=== PATIENT | male | born 1960 | race Caucasian/White ===

== ENCOUNTER 2017-08-04 07:52 | Outpatient (CLI) | payer MEDICAID ==
[2017-08-04] MEDS ORDERED: MIDAZOLAM 2 MG/2 ML VIAL IVP PRN (07:56)
[2017-08-04] MEDS ORDERED: FLUMAZENIL 0.5 MG/5 ML MDV IVP PRN (07:56)
[2017-08-04] MEDS ORDERED: ONDANSETRON 4 MG/2 ML VIAL IVP ONE (07:56)
[2017-08-04] MEDS ORDERED: NALOXONE HCL 0.4 MG/ML INJ IVP PRN (07:56)
[2017-08-04] MEDS ORDERED: fentaNYL 100 MCG/2 ML INJ IVP PRN (07:56)
[2017-08-04] MEDS ORDERED: MEPERIDINE 25 MG/ML SYR IVP PRN (07:56)
[2017-08-04] MEDS ORDERED: NS 1,000 ML IV SCH (08:00)
--- NOTE | 2017-08-04 09:15 | PDPROPOC ---
Sedation Plan of Care Sedation Plan of Care: vital signs stable, mental status noted, patient educated of risks, benefits, alternatives, patient can tolerate sedation ASA Classification: ASA 2 Planned drugs: fentanyl, midazolam Mallampati Score: Class 2 Mallampati Reference Image: Patient passed 3-3-2 rule?: Yes
--- NOTE | 2017-08-04 09:15 | PDRADPRE ---
Radiology History & Physical Surgical history: none Home medications: Carbidopa 07/29/17 [Last Taken Unknown] Entacapone 07/29/17 [Last Taken Unknown] Allergies/Adverse Reactions: No Known Allergies Allergy (Unverified 07/29/17 11:21) Mental status: A&Ox3 Heart exam: regular rate and rhythm Lungs exam: clear to auscultation Mallampati Score: Class 2
--- NOTE | 2017-08-04 09:16 | PDRADPN ---
Radiology Procedure Note Date of Procedure: 08/04/17 Radiologist: Krunal Domingo Anesthesia: IV Sedation Pre-op Diagnosis: parkinsons Post-op Diagnosis: parkinsons Indication: moderate sedation requested Procedure: MRI brain Inf/Abcess present in the surg proc area at time of surgery?: No Complications: none
[2017-08-04] MEDS ORDERED: GADOBUTROL 10 ML VIAL IVP ONE (09:19)
[2017-08-04] MEDS ORDERED: ONDANSETRON 4 MG/2 ML VIAL IVP PRN (11:17)
[2017-08-04] MEDS ORDERED: ACETAMINOPHEN 325 MG TAB PO PRN (11:17)
[2017-08-04 17:25] VITALS: BP 120/70
== END 2017-08-04 17:28 | disposition home or self-care (01) ==
LOC: FIMAGING 07:52
PROVIDERS: ATTEND Physician Assistant Surgical
DX: G20 Parkinson's disease (principal)
CPT/HCPCS: A9585; J2250; J2310; J3010

== ENCOUNTER 2017-08-11 05:40 | Inpatient (IN) | payer MEDICAID ==
[2017-08-11] MEDS ORDERED: LR 1,000 ML IV ONE (05:54)
[2017-08-11] MEDS ORDERED: CEFUROXIME 1,500 MG in STERILE WATER INJ 17 ML IV ONE (06:00)
[2017-08-11 06:22] LABS: PLATELET COUNT 196 10^3/uL (150-400)
[2017-08-11 06:31] LABS: INR 0.95 (0.83-1.16); PROTIME(PATIENT) 12.9 SEC (12.0-15.0)
[2017-08-11] MEDS ORDERED: LIDOCAINE 2% JELLY 20 ML (UROJECT) ONE (06:35)
[2017-08-11] MEDS ORDERED: CHLORHEXIDINE GLUC HIBICLENS 118 ML BTL TP ONE (06:35)
[2017-08-11] MEDS ORDERED: BUPIVACAINE 0.25% 30 ML SDV ONE (06:35)
[2017-08-11] MEDS ORDERED: GENTAMICIN SULFATE 80 MG/2 ML VIAL ONE (06:36)
[2017-08-11] MEDS ORDERED: EPINEPHrine 1 MG/ML INJ ONE (06:36)
[2017-08-11] MEDS ORDERED: THROMBIN (BOVINE) 20,000 UNIT VIAL TP ONE (06:36)
[2017-08-11] MEDS ORDERED: POVIDONE-IODINE 30 GM OINTTUBE TP ONE (06:37)
--- NOTE | 2017-08-11 06:53 | PDANEPAE ---
ANE History of Present Illness parkinsons dz p/f DBS ANE Past Medical History - Cardiovascular History Hx Hypertension: No Hx Arrhythmias: No Hx Chest Pain: No Hx Coronary Artery / Peripheral Vascular Disease: No Hx CHF / Valvular Disease: No Hx Palpitations: No - Pulmonary History Hx COPD: No Hx Asthma/Reactive Airway Disease: No Hx Recent Upper Respiratory Infection: No Hx Oxygen in Use at Home: No Hx Sleep Apnea: No Sleep Apnea Screening Result - Last Documented: Negative Pulmonary History Comment: CURRENT RESP INFECTION-COUGHING -NON PRODUCTIVE . - Neurologic History Hx Cerebrovascular Accident: No Hx Seizures: No Hx Dementia: No Neurologic History Comment: PARKINSON'S DX ~2016-TREMOR PREDOMINANTLY L GREATER THAN R. CONCUSSION AGE 6-NO MEMORY DEFICITS,NO H/A'S - Endocrine History Hx Diabetes: No Obesity: yes - Renal History Hx Renal Disorders: No - Liver History Hx Hepatic Disorders: No - Neurological & Psychiatric Hx Hx Neurological and Psychiatric Disorders: No - Cancer History Hx Cancer: No - Congenital Disorder History Hx Congenital Disorders: No - GI History Hx Gastrointestinal Disorders: No - Other Health History Other Health History: Parkinsons - Chronic Pain History Chronic Pain: No - Surgical History Prior Surgeries: None ANE Review of Systems Review of Systems: - Exercise capacity METS (RN): 4 METS ANE Patient History - Allergies Allergies/Adverse Reactions: No Known Allergies Allergy (Unverified 07/29/17 11:21) - Home Medications Home medications: home medication list seen and reviewed Home Medications: Carbidopa 07/29/17 [Last Taken 08/10/17] Entacapone 07/29/17 [Last Taken 08/10/17] - NPO status NPO Since - Liquids (Date): 08/10/17 NPO Since - Liquids (Time): 17:00 NPO Since - Solids (Date): 08/10/17 NPO Since - Solids (Time): 17:00 - Anes Hx Anes Hx: no prior problems - Smoking Hx Smoking Status: Never smoked - Family Anes Hx Family Hx Anesthesia Complications: None known ANE Labs/Vital Signs - Labs Result Diagrams: 08/11/17 06:10 08/11/17 06:10 - Vital Signs Blood Pressure: 144/100 Heart Rate: 79 Respiratory Rate: 18 O2 Sat (%): 94 Height: 175.26 cm Weight: 108.862 kg ANE Physical Exam - Airway Neck exam: FROM Mallampati Score: Class 2 Mouth exam: normal dental/mouth exam - Pulmonary Pulmonary: no respiratory distress - Cardiovascular Cardiovascular: regular rate and rhythym - ASA Status ASA Status: II ANE Anesthesia Plan Anesthesia Plan: MAC Lines/Monitors: arterial line
[2017-08-11] MEDS ORDERED: DEXMEDETOMIDINE HCL 400 MCG in NS 100 ML IV ONE (07:00)
--- NOTE | 2017-08-11 07:05 | PDHPUP ---
History & Physical Update H&P update statement: This history and physical update is based on an assessment of the patient which was completed after admission or registration (within 24 hours), but prior to the surgery/procedure. H&P update: H&P reviewed & patient examined, no change in patient's condition since H&P completed
[2017-08-11] MEDS ORDERED: niCARdipine/NACL/200 ML BAG IV ONE (07:06)
[2017-08-11] MEDS ORDERED: PROPOFOL 200 MG/20 ML VIAL ONE ×2 (07:07→09:03)
[2017-08-11] MEDS ORDERED: LIDOCAINE 2% 5 ML SDV ONE (07:07)
[2017-08-11] MEDS ORDERED: hydrALAZINE 20 MG/ML VIAL ONE (10:25)
[2017-08-11] MEDS ORDERED: LABETALOL HCL 5 MG/ML 20 ML MDV IVP PRN (11:19)
[2017-08-11] MEDS ORDERED: oxyCODONE IR 5 MG TAB PO PRN (11:19)
[2017-08-11] MEDS ORDERED: ALBUTEROL 3 ML DEYVIAL IH PRN (11:19)
[2017-08-11] MEDS ORDERED: LR 500 ML IV PRN (11:19)
[2017-08-11] MEDS ORDERED: NALOXONE HCL 0.4 MG/ML INJ IVP PRN (11:19)
[2017-08-11] MEDS ORDERED: fentaNYL 100 MCG/2 ML INJ IVP PRN (11:19)
[2017-08-11] MEDS ORDERED: HYDROmorphONE/DILAUDID 2 MG/ML INJ IVP PRN (11:19)
[2017-08-11] MEDS ORDERED: HYDROCODONE/APAP 5/325 TAB PO PRN (11:19)
[2017-08-11] MEDS ORDERED: ACETAMINOPHEN 500 MG TAB PO PRN (11:19)
[2017-08-11] MEDS ORDERED: ONDANSETRON 4 MG/2 ML VIAL IVP PRN ×2 (11:19→11:50)
--- NOTE | 2017-08-11 11:23 | POSTANESTH ---
Post Anesthetic Evaluation Cardiovascular Status: Normal, Stable Respiratory Status: Normal, Stable Level of Consciousness/Mental Status: Can Participate in Eval Pain Control: Adequate, Prn Tx Ordered Nausea/Vomiting Control: Adequate, Prn Tx Ordered Complications Possibly Related to Anesthesia: None Noted
[2017-08-11] MEDS ORDERED: fentaNYL 100 MCG/2 ML INJ ONE (11:32)
[2017-08-11] MEDS ORDERED: LACTULOSE 20 GM/30 ML UDCUP PO PRN (11:50)
[2017-08-11] MEDS ORDERED: BISACODYL 10 MG SUPP PR PRN (11:50)
[2017-08-11] MEDS ORDERED: MAGNESIUM HYDROXIDE 30 ML UDCUP PO PRN (11:50)
[2017-08-11] MEDS ORDERED: POLYETHYLENE GLYCOL 3350 17 GM PKT PO PRN (11:50)
[2017-08-11] MEDS ORDERED: hydrALAZINE 20 MG/ML VIAL IVP PRN (11:52)
--- NOTE | 2017-08-11 11:56 | POSTOPPROG ---
Post Op Note Date of Operation: 08/11/17 Surgeon: Lucia Sexton Front End Web Designer: Edel Miller PA-C Anesthesia: IV Sedation, Local (Specify) Pre-op Diagnosis: Parkinson's Post-op Diagnosis: Parkinson's Procedure: Right STN DBS lead placement Inf/Abcess present in the surg proc area at time of surgery?: No Depth: Deep Incisional (Fascial) EBL: Minimal Plan Plan: 57 yo male s/p right STN DBS lead placement for PD - neuro checks - pain control - advance diet as tolerated - postop head CT pending - maintain SBP < 140 - to floor if head CT stable and SBP < 140 - discharge: hopefully home tomorrow Exam Awake. Alert Following commands Strength full Incision with dressing c/d/i
[2017-08-11] MEDS ORDERED: NS W/ 20 KCl/L 1,000 ML IV SCH (12:00)
[2017-08-11] MEDS ORDERED: LABETALOL HCL 5 MG/ML 20 ML MDV ONE (12:14)
--- NOTE | 2017-08-11 12:30 | GPN ---
[f rep st] PROCEDURE NOTE DATE OF PROCEDURE: 08/11/2017 PREPROCEDURE DIAGNOSIS: Parkinson disease. POSTPROCEDURE DIAGNOSIS: Parkinson disease. PROCEDURE PERFORMED: Intraoperative functional subcortical mapping by microelectrode recording and s timulation. COMPLICATIONS: None. INDICATIONS FOR PROCEDURE: Determination of optimal electrode lead placement for deep brain stimulat ion therapy for Parkinson disease to the STN. DESCRIPTION OF PROCEDURE: Following the incision, the right upper hole was drilled. The arc was the n arranged with the following coordinates: X is 87, Y 98.5, Z 112, ring 62, arc 76.3. The recording microelectrode was then slowly advanced into the brain using a central tract. There was evidence of entering STN at 5.6 above target. There was change in stimulation with shoulder passive range of mo tion at 4.6 above target, as well as tremor cell present. We exited STN at 1 below target. We then elected to proceed with macro stimulation at 2 above target. Patient had no side effects up to 4.0 with improvement in tremor. We, therefore, proceeded with placement of the lead and test stim ulation. At 0-, patient had no side effects up to 3.5 with transient tingling at 4.0. At 1-, patien t had no side effects up to 5.0. At 2-, patient had no side effects up to 5.0. At 3-, patient had n o side effects up to 5.0. The bottom of the lead was placed at 1 below target. Despite seeing improvement in his tremor with macro stimulation, there was not significant tremor imp rovement with test stimulation at the 0, 1, 2, and 3 contacts. We, therefore, elected to proceed wit h further microelectrode recordings using a posterior and lateral tract. There was no evidence of en tering STN on the lateral tract. In the posterior tract, we entered STN at 4 above target with hicks e in stimulation with passive range of motion of the elbow at 1.6 above target. We exited STN at 1 b elow target. We then proceeded with macro stimulation with the posterior tract at 1.5 above target. Patient had no side effects up to 4.0. With these recordings obtained, we decided to place the lead and stimulate. At 0-, patient had trans ient tingling. At 1.5 with constant tingling at 2.5 amplitude. At 1-, patient had improved tremor a t 3.0 with tingling in his toes. At 2-, patient had no side effects up to 4.0. At 3-, patient had a buzzing sensation in his tongue and shoulder that was constant at 4.0 above target. We elected to p lace the lead in the posterior tract due to the microelectrode recordings obtained and test stimulati on. The lead was placed at 1 below target. The patient tolerated the surgery well without complications and was transferred to the recovery unit . /[id number]/MODL
--- NOTE | 2017-08-11 12:30 | GOP ---
[f rep st] OPERATIVE REPORT DATE OF OPERATION: SURGEON: Lucia Sexton DO NEUROSURGEON: Lucia Sexton DO SEARCH MARKETING ANALYST: ADELE Junior PREOPERATIVE DIAGNOSIS: Parkinson disease. POSTOPERATIVE DIAGNOSIS: Parkinson disease. PROCEDURE PERFORMED: 1. Right deep brain stimulator lead placement to subthalamic nucleus. 2. Stealth. FINDINGS: SPECIMENS: None. ESTIMATED BLOOD LOSS: 30 mL. INDICATIONS: This is a 57-year-old male with tremor-predominant Parkinson's who was found to be a go od candidate for bilateral deep brain stimulator lead placement to the STN nucleus. DESCRIPTION OF PROCEDURE: He was identified, consented. Sites were marked. Brought to the operatin g room and anesthetized under local with MAC. Hair was clipped with the OR clippers. Head was clean sed with ChloraPrep. Povidone-iodine was placed in the pins. Pin sites were anesthetized with 0.25% Marcaine with epinephrine. Leksell frame was then placed stereotactically, and a spin with a locali zer box was performed with the O-arm 2. This was merged to the preoperative plan in the [employer] software. The STN coordinates were an X of 11.95, a Y of -2.79, a Z of -4.93. The entry point was an X of 36.41, a Y of 48.44, a Z of 67.19. This corresponded to 18.7 degrees off midsagittal, 5 4.6 degrees off midaxial. This corresponded to Leksell frame coordinates of an X of 87, a Y of 98.5, a Z of 112, a ring of 62 degrees and arc of 76.3 degrees, and an ACPC distance of 25. These setting s were all set and triple checked after prepping and draped in the usual sterile fashion. The incisi on site was marked using the cannula in the preoperative plan [facility] coordinates. A half-moss incis ion was anesthetized with 0.5% Marcaine with epinephrine. Incision was made with a 10 blade. Hemost asis was obtained with bipolar cautery and Winsome clips. Elevated periosteum with a periosteal elevat or, marked the bone opening with the same cannula and then performed a pilot safety inspector hole. Then, a 14 mm dri ll bur hole was placed. The bone edges were waxed. The Stimloc device was placed, locked into place with 5 mm Synthes screws. The clipping mechanism verified to clip and lock. We opened the dura sha rply from above with an 11 blade, and hemostasis was obtained with bipolar cautery. We then placed a cannula and stylet, and placed DuraSeal. We then removed the internal stylet, placed a microelectro de, performed microelectrode recordings. At this point in time, assistance was needed and Edel Miller's assistance was needed as one person was required to remain scrubbed while the JUAN MIGUEL was being p erformed to monitor the lead monitor and run the drive. We got an excellent run with good driving an d tremor itself in the center tract approximately 6 mm of STN. We elected to place the lead here. W e got out 1 below. We performed macro stim and got good tremor control. We placed the lead. We did not get good tremor control at any level. We got no side effects whatsoever. We would get a quick arrest for approximately 3 seconds and then get tremor return. We elected to drive back up and try a posterior and lateral tract, and so we removed the Gelfoam and DuraSeal, placed 2 more cannulae, macy torie the center tract with the insertion cannula inside of it. Placed microelectrodes through the [facility] ers and performed microelectrode recording. We got another 5 mm run of the STN with good driving in the posterior tract. We elected to macro stim here and got good arrest, and so we elected to test th e lead here and see which of the 2 was better. We placed the lead at 1 below target where we got out and tested the lead here. We were able to get tremor rest on the 1 contact at 3 V and we did get so me transient paresthesias. This seemed to be the better tract from a tremor control standpoint. We had previously performed a Stealth spin to make our decision as to where to place our moves. We then performed another Stealth spin and in fact the lead fell exactly where we expected it to be. We ret racted the cannula, removed the stylet, locked the lead into place, marked the lead and placed it int o the groove, placed the cap, and placed the boot over the lead extension complex, placed the extensi on and locked into place, protecting each contact with the torque wrench. Brought the boot over the lead extension complex, tied it into position with 2-0 silk ties at 2 positions, tunneled posteriorly with periosteal elevator. Anesthetized the stab incision with 0.25% Marcaine with epinephrine. A s tab incision was made with an 11 blade, and we tunneled posterior to anterior, bringing the lead exte nsion down and out cutting it at the skin, coiling the lead posterior and around the incision. Took a final x-ray. It had not migrated. Copiously irrigated the incision with over a liter of gentamici n infused saline. Closed the galea with 2-0 Vicryl pop-offs. The skin was closed with 3-0 running n ylon. Wound was dressed with Xeroform and Telfa. The frame was removed. The patient tolerated the procedure well. There were no complications. FLUIDS: 1200 mL of crystalloid. URINE OUTPUT: 350 mL. DRAINS: None. COMPLICATIONS: None. /[id number]/MODL
[2017-08-11] MEDS: CEFUROXIME 1,500 MG in NS 50 ML IV SCH (16:43)
[2017-08-11] MEDS: ENTACAPONE 200 MG TAB PO SCH ×2 (17:10→22:36)
[2017-08-11] MEDS: CARBIDOPA/LEVODOPA 25 MG/100 MG TAB PO SCH ×2 (17:10→22:36)
[2017-08-11] MEDS: ACETAMINOPHEN 325 MG TAB PO PRN ×2 (17:52→22:36)
[2017-08-11] MEDS: HYDROCODONE/APAP 5/325 TAB PO PRN (17:52)
[2017-08-11] MEDS: SENNOSIDES/DOCUSATE SODIUM TAB PO SCH (22:36)
[2017-08-12] MEDS: CEFUROXIME 1,500 MG in NS 50 ML IV SCH (01:39)
[2017-08-12] MEDS: ENTACAPONE 200 MG TAB PO SCH ×5 (01:41→20:48)
[2017-08-12] MEDS: CARBIDOPA/LEVODOPA 25 MG/100 MG TAB PO SCH ×5 (01:41→20:47)
[2017-08-12] MEDS: HYDROCODONE/APAP 5/325 TAB PO PRN ×2 (05:16→13:22)
[2017-08-12] MEDS: SENNOSIDES/DOCUSATE SODIUM TAB PO SCH ×2 (08:35→20:47)
[2017-08-12] MEDS: ACETAMINOPHEN 325 MG TAB PO PRN (08:38)
--- NOTE | 2017-08-12 10:10 | SOAPPROG ---
SOAP Progress Note Assessment/Plan: Assessment: 57 yo M POD #1 DVS lead placement Plan: stable PT/OT head CT 08/11 is stable likely dc home today please call with neuro changes 08/12/17 10:08 Subjective: mild headache, some nausea as well. No weakness Objective: Vital Signs Temp Pulse Resp BP Pulse Ox 37.3 C 83 16 103/73 94 08/12/17 07:45 08/12/17 07:45 08/12/17 07:45 08/12/17 07:45 08/12/17 07:45 Laboratory Results 08/11/17 06:10 08/11/17 06:10 08/11/17 08/12/17 08/13/17 05:59 05:59 05:59 Intake Total 800 Output Total 420 Balance 380 PT 12.9 SEC (12.0-15.0) 08/11/17 06:10 INR 0.95 (0.83-1.16) 08/11/17 06:10 AAOX4, +FC PERRL, EOMI, no facial droop CARI x 4 + light touch C/D/I ICD10 Worksheet Patient Problems: Problems Problem Status Onset Parkinson disease Acute - ICD10 Problem Qualifiers (1) Parkinson disease
[2017-08-12] MEDS ORDERED: NS 1,000 ML IV SCH (11:00)
[2017-08-12] MEDS ORDERED: CARBIDOPA/LEVODOPA 25 MG/100 MG TAB PO ONE (11:45)
--- NOTE | 2017-08-12 12:14 | PDMN ---
Medical Necessity Medical necessity: IP only surgery; cpt 88406 & [id number] Neurosurgery (Deep Brain Stimulator Placement)
--- NOTE | 2017-08-12 15:33 | ASMTCMCOM ---
CM Note CM Note Notes: Pt admitted for DBS placement for his Parkinsons. PT/OT have cleared him for home, his mother is coming to help, CM available for any changes. DC Plan: Independent Date Signed: 08/12/2017 03:33 PM Electronically Signed By:Irlanda Kuhn RN
[2017-08-13] MEDS: CARBIDOPA/LEVODOPA 25 MG/100 MG TAB PO SCH ×3 (01:53→11:14)
[2017-08-13] MEDS: ENTACAPONE 200 MG TAB PO SCH ×3 (01:53→11:14)
--- NOTE | 2017-08-13 08:33 | NEUSURGPN ---
Date of Surgery: 08/11/17 Post Op Day: 2 Assessment/Plan: Assessment: 57 yo M POD #1 DVS lead placement Plan: -Patient feeling better this am -Ok to discharge home today with C -PT/OT -head CT 08/11 is stable -Patient discussed with Dr Frausto please call with neuro changes Subjective: Feeling better this am, concerned about going home alone Objective: AxO x3 07/18 BUE, BLE Incision CDI with sutures Neuro Check Frequency: per routine Urinary Catheter in Place: No - Physician Discussed Patient with : Carlie Neurosurgery Physical Exam - Vitals, I&O, Labs I and O 08/12/17 08/13/17 08/14/17 05:59 05:59 05:59 Intake Total 800 Output Total 420 Balance 380 Weight 108.862 kg Intake: Oral (ml) 800 Output: Urine (ml) 420 Urinal 420 Other: Intake Quantity Yes Sufficient Number of Voids Toilet 5 1 Vital Signs Temp Pulse Resp BP Pulse Ox 36.7 C 67 16 131/97 H 97 08/13/17 08:00 08/13/17 08:00 08/13/17 08:00 08/13/17 08:00 08/13/17 08:00 Laboratory Results 08/11/17 06:10 08/11/17 06:10 ICD10 Worksheet Patient Problems: Problems Problem Status Onset Parkinson disease Acute
--- NOTE | 2017-08-13 08:35 | PDIAF ---
- Diagnosis Diagnosis: S/P DBS lead placement Code Status: Full Code - Medication Management Discharge Medications: Medications to Continue on Transfer Carbidopa/Levodopa [Carbidopa-Levodopa 25-100 Tab] 2 each PO 02,06,,16,21 [Last Taken 08/10/17] Entacapone [Comtan] 200 mg PO 02,06,11,16,21 07/29/17 [Last Taken 08/10/17] Hydrocodone/APAP 5/325 [King 5/325 (*)] 1 tab PO Q4HRS PRN tab 08/12/17 [Last Taken Unknown] Ondansetron HCl Pf [Zofran 4 mg Inj (*)] 4 mg IVP Q4HRS PRN vial 08/12/17 [ Last Taken Unknown] Acetaminophen [Tylenol 325mg (*)] 650 mg PO Q4HRS PRN tab 08/13/17 [Last Taken Unknown] Discharge Medications: Refer to the Discharge Home Medication list for PRN reason. - Orders Services needed: Home Care, Registered Nurse, Certified Multiplex Operator, Physical Therapy Home Care Face to Face: I certify that this patient was under my care and that I had the required [id number] encounter meeting the encounter requirements on the discharge day. My findings support the fact that the patient is homebound as defined in Home Care Face to Face Continued: CMS Chapter 7 Medicare Benefits Manual 30.1.1 , The condition of the patient is such that there exists a normal inability to leave home and consequently, leaving home would require a considerable and taxing effort. Diet Recommendation: no restrictions on diet Diet Texture: Regular Texture Diet Wound Care Instructions: Ok to shower Sutures/Anahi Site: Will remove at 2 week post op appointent Additional Instructions: 1. Follow up with Dr. Sexton in 2 weeks. [phone] 2. Refrain from lifting more than 10 pounds and bending. No strenuous activity. 3. Ok to remove dressing on 08/13/17 and leave incision open to the air. 4. Ok to shower and get incision wet starting 08/14/17. Be gentle, no scrubbing. 5. Take Tylenol as needed for pain relief. 6. Call Dr. Sexton's office with any questions/concerns. 7. discharge with deep brain stimulation post op instructions from [email or web address] -> patient resources -> post op instructions - Follow Up Care Current Providers and Referrals: NONE *PRIMARY CARE P,. [Primary Care Provider] - Lucia Sexton DO [Doctor of Osteopathy] - follow up in 2 weeks
[2017-08-13] MEDS: SENNOSIDES/DOCUSATE SODIUM TAB PO SCH (11:13)
[2017-08-13] MEDS: ACETAMINOPHEN 325 MG TAB PO PRN (11:14)
[2017-08-13 12:09] VITALS: BP 137/94
--- NOTE | 2017-08-13 16:14 | ASDISCHSUM ---
Discharge Information Plan Status:Home with Home Health Medically Cleared to Leave: Discharge Date:08/13/2017 01:37 PM CM D/C Disposition:Home Health Service ADT D/C Disposition:[id number] Projected Discharge Date:08/13/2017 11:00 AM Transportation at D/C: Discharge Delay Reason: Follow-Up Date:08/13/2017 11:00 AM Discharge Slot: Final Diagnosis: Placement Information Referral Type:*Home Health Care Services Referral ID:[id number] Provider Name:[facility] Address 1:[address] [address] Address 2: City:[place] Selection Factors: State:[place] Patient Contact Information Contact Name:JULIENRODRIGUEWING Relationship:Mother Address: City: [facility] [facility] Phone: State/Zip Code: Email: Financial Information Financial Class:Medicaid Primary Plan Desc:[employer] Primary Plan Number:[id number] Secondary Plan Desc: Secondary Plan Number: Assessment Information [facility] CM Progress Note CM Note CM Note Notes: Pt admitted for DBS placement for his Parkinsons. PT/OT have cleared him for home, his mother is coming to help, CM available for any changes. DC Plan: Independent Date Signed: 08/12/2017 03:33 PM Electronically Signed By:Irlanda Kuhn RN [facility] CM Progress Note CM Note CM Note Notes: Pt medically stable for d/c with Family C RN. Orders sent in [employer]. Pt address/phone verified. Date Signed: 08/13/2017 04:14 PM Electronically Signed By:ROHIT Barrera Intervention Information
--- NOTE | 2017-08-13 16:14 | ASMTCMCOM ---
CM Note CM Note Notes: Pt medically stable for d/c with [facility] RN. Orders sent in [employer]. Pt address/phone verified. Date Signed: 08/13/2017 04:14 PM Electronically Signed By:ROHIT Barrera
[2017-08-14] MEDS ORDERED: ENOXAPARIN 40 MG/0.4 ML SYR SC SCH (09:00)
== END 2017-08-13 13:37 | disposition home health service (06) | DRG 21 ==
LOC: F3N 05:40
PROVIDERS: ADMIT Neurological Surgery; ATTEND Neurological Surgery
PROC: 00K03ZZ Map Brain, Percutaneous Approach (ICD-10-PCS; 2017-08-11)
PROC: 00H03MZ Insertion of Neurostimulator Lead into Brain, Percutaneous Approach (ICD-10-PCS; principal; 2017-08-11 07:15)
DX: G20 Parkinson's disease (principal)
CPT/HCPCS: 97161-GP; 97166-GO; C1713; J0171; J0360; J0697; J1580; J2704; J3010

== ENCOUNTER 2017-09-01 05:40 | Inpatient (IN) | payer MEDICAID ==
[2017-09-01] MEDS ORDERED: CEFUROXIME 1,500 MG in NS 50 ML IV ONE (06:00)
[2017-09-01] MEDS ORDERED: LIDOCAINE 1% 2 ML INJ ID PRN (06:16)
[2017-09-01] MEDS ORDERED: LR 1,000 ML IV ONE (06:16)
[2017-09-01] MEDS ORDERED: CHLORHEXIDINE GLUC HIBICLENS 118 ML BTL TP ONE (06:39)
[2017-09-01] MEDS ORDERED: THROMBIN (BOVINE) 20,000 UNIT VIAL TP ONE (06:39)
[2017-09-01] MEDS ORDERED: BUPIVACAINE 0.25% 30 ML SDV ONE (06:40)
[2017-09-01] MEDS ORDERED: GENTAMICIN SULFATE 80 MG/2 ML VIAL ONE (06:40)
[2017-09-01] MEDS ORDERED: LIDOCAINE 2% JELLY 20 ML (UROJECT) ONE (06:40)
[2017-09-01] MEDS ORDERED: EPINEPHrine 1 MG/ML INJ ONE (06:40)
[2017-09-01] MEDS ORDERED: POVIDONE-IODINE 30 GM OINTTUBE TP ONE (06:40)
[2017-09-01] MEDS ORDERED: niCARdipine/NACL 200 ML IV SCH (07:00)
--- NOTE | 2017-09-01 09:14 | PDANEPAE ---
ANE Past Medical History - Cardiovascular History Hx Hypertension: No Hx Arrhythmias: No Hx Chest Pain: No Hx Coronary Artery / Peripheral Vascular Disease: No Hx CHF / Valvular Disease: No Hx Palpitations: No - Pulmonary History Hx COPD: No Hx Asthma/Reactive Airway Disease: No Hx Recent Upper Respiratory Infection: No Hx Oxygen in Use at Home: No Hx Sleep Apnea: No Sleep Apnea Screening Result - Last Documented: Negative Pulmonary History Comment: CURRENT RESP INFECTION-COUGHING -NON PRODUCTIVE . - Neurologic History Hx Cerebrovascular Accident: No Hx Seizures: No Hx Dementia: No Neurologic History Comment: PARKINSON'S DX ~2016-TREMOR PREDOMINANTLY L GREATER THAN R. CONCUSSION AGE 6-NO MEMORY DEFICITS,NO H/A'S - Endocrine History Hx Diabetes: No - Renal History Hx Renal Disorders: No - Liver History Hx Hepatic Disorders: No - Neurological & Psychiatric Hx Hx Neurological and Psychiatric Disorders: No - Cancer History Hx Cancer: No - Congenital Disorder History Hx Congenital Disorders: No - GI History Hx Gastrointestinal Disorders: No - Other Health History Other Health History: Parkinsons - Chronic Pain History Chronic Pain: No - Surgical History Prior Surgeries: None ANE Review of Systems Review of Systems: - Exercise capacity METS (RN): 4 METS ANE Patient History - Allergies Allergies/Adverse Reactions: No Known Allergies Allergy (Verified 09/01/17 06:25) - Home Medications Home Medications: Carbidopa/Levodopa [Carbidopa-Levodopa 25-100 Tab] 2 each PO 02,06,,16,21 [Last Taken 08/31/17 21:00] Entacapone [Comtan] 200 mg PO 02,06,,16,21 07/29/17 [Last Taken 08/31/17 21:00 ] - NPO status NPO Since - Liquids (Date): 09/01/17 NPO Since - Liquids (Time): 05:00 NPO Since - Solids (Date): 09/01/17 NPO Since - Solids (Time): 05:00 - Smoking Hx Smoking Status: Never smoked - Family Anes Hx Family Hx Anesthesia Complications: None known ANE Labs/Vital Signs - Vital Signs Blood Pressure: 138/94 Heart Rate: 76 Respiratory Rate: 21 O2 Sat (%): 93 Height: 175.26 cm Weight: 108.862 kg ANE Physical Exam - Airway Neck exam: C-collar in place, short neck Mallampati Score: Class 3 Mouth exam: normal dental/mouth exam - Pulmonary Pulmonary: no respiratory distress, no rales or rhonchi, reduced air movement - Cardiovascular Cardiovascular: regular rate and rhythym, no murmur, rub, or gallop - ASA Status ASA Status: III ANE Anesthesia Plan Anesthesia Plan: MAC Lines/Monitors: arterial line, additional IV Total IV Anesthesia: Yes
[2017-09-01] MEDS ORDERED: DEXMEDETOMIDINE HCL 200 MCG/2 ML VIAL IV ONE (09:15)
[2017-09-01] MEDS ORDERED: PROPOFOL/EMULSION 500 MG/50 ML BOTTLE IV ONE (09:24)
[2017-09-01] MEDS ORDERED: fentaNYL 100 MCG/2 ML INJ ONE (09:31)
[2017-09-01] MEDS ORDERED: ALBUMIN 5% 250 ML BOTTLE IV ONE (09:43)
[2017-09-01] MEDS ORDERED: LIDOCAINE 2% 5 ML SDV ONE (10:21)
[2017-09-01] MEDS ORDERED: ONDANSETRON 4 MG/2 ML VIAL ONE (10:21)
[2017-09-01] MEDS ORDERED: HYDROCODONE/APAP 5/325 TAB PO PRN ×2 (11:14→13:03)
[2017-09-01] MEDS ORDERED: ALBUTEROL 3 ML DEYVIAL IH PRN (11:14)
[2017-09-01] MEDS ORDERED: ONDANSETRON 4 MG/2 ML VIAL IVP PRN ×2 (11:14→13:00)
[2017-09-01] MEDS ORDERED: DEXAMETHASONE 4 MG/ML VIAL IVP PRN (11:14)
[2017-09-01] MEDS ORDERED: fentaNYL 100 MCG/2 ML INJ IVP PRN (11:14)
[2017-09-01] MEDS ORDERED: ACETAMINOPHEN 500 MG TAB PO PRN (11:14)
[2017-09-01] MEDS ORDERED: NALOXONE HCL 0.4 MG/ML INJ IVP PRN (11:14)
[2017-09-01] MEDS ORDERED: BISACODYL 10 MG SUPP PR PRN (13:00)
[2017-09-01] MEDS ORDERED: POLYETHYLENE GLYCOL 3350 17 GM PKT PO PRN (13:00)
[2017-09-01] MEDS ORDERED: LACTULOSE 20 GM/30 ML UDCUP PO PRN (13:00)
[2017-09-01] MEDS ORDERED: MAGNESIUM HYDROXIDE 30 ML UDCUP PO PRN (13:00)
[2017-09-01] MEDS ORDERED: NS W/ 20 KCl/L 1,000 ML IV SCH (13:00)
[2017-09-01] MEDS ORDERED: hydrALAZINE 20 MG/ML VIAL IVP PRN (13:03)
--- NOTE | 2017-09-01 13:07 | POSTOPPROG ---
Post Op Note Date of Operation: 09/01/17 Surgeon: Lucia Sexton Aircraft Magneto Mechanic: Edel Miller PA-C Anesthesia: IV Sedation Pre-op Diagnosis: Parkinson's Post-op Diagnosis: Parkinson's Procedure: Left STN DBS lead placement Inf/Abcess present in the surg proc area at time of surgery?: No Depth: Deep Incisional (Fascial) EBL: Minimal Plan Plan: 57 yo male s/p left STN DBS lead placement - neuro checks - pain control - maintain SBP < 140 - postop head CT pending - if head CT stable and SBP < 140 then transfer to the floor - PT/OT - plan for discharge tomorrow Exam Awake. Alert Following commands Incision with dressing c/d/i
--- NOTE | 2017-09-01 13:18 | GOP ---
[f rep st] OPERATIVE REPORT DATE OF OPERATION: SURGEON: Lucia Sextno DO NEUROSURGEON: Lucia Sexton DO CAT TENDER: ADELE Junior PREOPERATIVE DIAGNOSIS: Parkinson disease. POSTOPERATIVE DIAGNOSIS: Parkinson disease. PROCEDURE PERFORMED: 1. Left deep brain stimulator lead placement to the subthalamic nucleus with Medtronic 3389 lead. 2. Stealth stereotaxis. FINDINGS: SPECIMENS: None. ESTIMATED BLOOD LOSS: 30 mL. 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 He has had the right-sided lead placed. DESCRIPTION OF PROCEDURE: He was identified, consented. Sites were marked. Brought to the operatin g room, anesthetized under local with MAC. Hair was clipped with the OR clippers. The scalp was matthew ansed with ChloraPrep. Povidine- iodine was placed on the pin sites, and the Leksell frame was place d stereotactically after anesthetizing with 0.5% Marcaine with epinephrine. We then performed a [facility] stereotactic spin and merged it to the preoperative plan. We mirrored the previous lead on the s pin, and ACPC distance was 25. The target was an X of -10.8, a Y of -4.82, a Z of -0.25. The entry point was an X of -42.53, a Y of 34.15, a Z of 64.45. This corresponded to Leksell frame coordinates of an X of 112.5, a Y of 98, a Z of 117.5, a ring of 75 degrees, an arc of 115.6 degrees. He was pr epped and draped in the usual sterile fashion. All Leksell frame coordinates were set and triple miguel cked by all providers in the room. The incision site was marked using the preoperative Leksell plan, and a half-moss incision was anesthetized with 0.5% Marcaine with epinephrine. Incision was made wi th a 10 blade. Periosteum was elevated with periosteal elevator. Hemostasis was obtained with Iwnsome clips. Bone incision was marked using the cannula and Leksell frame coordinates, and a river pilot hole w as performed. Then a 14 mm Danis bur hole was performed, verified to be in the appropriate positio n. Bone edges were waxed. The Navigus device was placed, locked into place with 5 mm Synthes screws . The clipping mechanism was verified to clip and lock. We then opened the dura sharply, coagulated the cortex with bipolar, and placed a center and anterior tract cannula, locked into place, sealed this with Gelfoam and DuraSeal. Placed the microelectrodes and performed microelectrode recording. Please refer to the dictation by Edel Miller regarding microelectrode recording. Got a good run of STN in the anterior tract with some motor driving in 5 mm. We macro stemmed and had no side effec ts. This patient had some previous intraoperative tremor control from breakthrough tremor, and so we elected to place the lead here with the bottom contact of 0.5 below target, where we got out. This was driven to this position. The lead was measured and marked. The microelectrodes were removed. T he internal stylet was placed in the center tract. The anterior tract was implanted with the lead, a nd we tested each contact. All impedances were good. We got some tremor control to 0.5 with the 1 c ontact and had breakthrough tremor throughout. No side effects. Elected to leave the lead here base d upon recordings and imaging, and performed a Stealth stereotactic spin. This was exactly where we expected the lead to be with very little or little to no deviation. We retracted the cannulas. Irri gated copiously with gentamicin infused saline. Clipped the clipping mechanism and locked it. Marke d the lead. Brought the stylet out. Brought the lead down and placed it into the groove. Placed th e cap over the lead. Took another x-ray. It had not migrated. Placed a boot over the lead. Placed extension over the lead. Locked into place with a torque wrench. Locked down the extension over th e lead. Brought the boot over the lead extension complex. Tied in position with 2-0 silk ties at 2 positions, tunneled posteriorly with periosteal elevator. Anesthetized the stab incision posteriorly with 0.5% Marcaine with epinephrine. A stab incision was made with an 11 blade, tunneled posterior to anterior. Brought the lead extension down and out cutting at the skin, coiling it posterior and a round the incision. Took another x-ray. It had not migrated. Copiously irrigated with gentamicin i nfused saline. Closed the galea with 2-0 Vicryl pop-offs. Skin was closed with 3-0 running nylon. Frame was removed and Telfa and Xeroform were placed over the incision, stapled down. A head wrap wa s placed. Patient tolerated procedure well. No complications. FLUIDS: 2 L of crystalloid. URINE OUTPUT: Not recorded. DRAINS: None. COMPLICATIONS: None. /[id number]/MODL
--- NOTE | 2017-09-01 13:28 | POSTANESTH ---
Post Anesthetic Evaluation Cardiovascular Status: Normal, Stable, Similar to Pre-Op Cond Respiratory Status: Normal, Stable, Similar to Pre-op Cond. Level of Consciousness/Mental Status: Can Participate in Eval, Alert and Oriented Pain Control: Adequate, Prn Tx Ordered Nausea/Vomiting Control: Adequate, Prn Tx Ordered Complications Possibly Related to Anesthesia: None Noted
--- NOTE | 2017-09-01 13:34 | GPN ---
[f rep st] PROCEDURE NOTE DATE OF PROCEDURE: 09/01/2017 PREPROCEDURE DIAGNOSIS: Parkinson disease. POSTPROCEDURE DIAGNOSIS: Parkinson disease. PROCEDURE PERFORMED: Intraoperative functional subcortical mapping by microelectrode recording and s timulation. COMPLICATIONS: None. INDICATIONS FOR PROCEDURE: Determination of optimal electrode lead placement for deep brain stimulat ion therapy for Parkinson disease to the STN. DESCRIPTION OF PROCEDURE: Following the incision on the left, a mishel hole was drilled. The arc was then arranged with the following coordinates: [place] 112.5, Y is 98, Z is 117.5, ring is 75, arc is 11 5.6. The recording microelectrode was then slowly advanced into the brain using a central and anteri or tract. There was no evidence of entering STN with the central tract. With the anterior tract, th ere was evidence of cell bursts above target at 13 and 12.5 above target. We entered STN in the ante rior tract at 4.5 above target. There was a tremor cell noted at 4.3 above target. There was change in stimulation with passive range of motion with elbow extension at 2.4 above target. We exited STN at 0.5 below target. We then proceeded with macrostimulation at 2.5 above target. Patient had no s mayito effects up to 4.0. With the microelectrode recordings obtained, we elected to place the lead in this location and proceed with test stimulation. At 0 negative, patient had tightness in his right h and at 4.0 amplitude. At 1 negative, tremor was improved at 2.5 with no side effects up to 4.0. At 2 negative, patient had no side effects up to 4.0 with possible improvement in tremor. At 3 negative , patient had possible lower extremity tightness and pulling sensation at 4.0 amplitude. With these recordings and test stimulation obtained, we elected to place the lead in this location with the kirby om of the lead at 0.5 below target. The patient tolerated the surgery well without any complications and was transferred to the floor for further observation and pain control. /[id number]/MODL
[2017-09-01] MEDS: ENTACAPONE 200 MG TAB PO SCH ×2 (15:00→22:01)
[2017-09-01] MEDS: CARBIDOPA/LEVODOPA 25 MG/100 MG TAB PO SCH ×2 (15:00→22:00)
[2017-09-01] MEDS: ACETAMINOPHEN 325 MG TAB PO PRN (15:42)
--- NOTE | 2017-09-01 15:55 | PDMN ---
Medical Necessity Medical necessity: IP surgery per Alondra cpt [id number], [id number] L STN DBS lead placement
[2017-09-01] MEDS: CEFUROXIME 1,500 MG in NS 50 ML IV SCH (18:50)
[2017-09-01] MEDS: SENNOSIDES/DOCUSATE SODIUM TAB PO SCH (22:01)
[2017-09-02] MEDS: ENTACAPONE 200 MG TAB PO SCH ×3 (02:29→11:26)
[2017-09-02] MEDS: CEFUROXIME 1,500 MG in NS 50 ML IV SCH (02:29)
[2017-09-02] MEDS: CARBIDOPA/LEVODOPA 25 MG/100 MG TAB PO SCH ×3 (02:29→11:25)
--- NOTE | 2017-09-02 07:21 | NEUSURGPN ---
Assessment/Plan: S: Patient doing well. Denies headache. Eating, voiding well. O: Exam Awake. Alert Following commands CN II-XII grossly intact PERRL, EOMI BLANCO X 4 Incision with dressing c/d/i Plan: 57 yo male s/p left STN DBS lead placement - neuro checks: Doing well - pain control- Doing well on current regimen - maintain SBP < 140 - postop head CT shows good lead placement without any intracranial hemorrhage, mass effect, some expected postop pneumocephalus - PT/OT - plan for discharge today - Physician Discussed Patient with : Carlie Neurosurgery Physical Exam - Vitals, I&O, Labs I and O 09/01/17 09/02/17 09/03/17 05:59 05:59 05:59 Intake Total 925 Output Total 350 Balance 575 Weight 108.862 kg Intake: Oral (ml) 800 IV Intake (ml) 125 Output: Urine (ml) 300 Toilet 300 Estimated Blood Loss (ml) 50 Other: Intake Quantity Yes Sufficient Number of Voids Toilet 1 Vital Signs Temp Pulse Resp BP Pulse Ox 37.2 C 87 16 130/90 H 95 09/02/17 04:00 09/02/17 04:00 09/02/17 04:00 09/02/17 04:00 09/02/17 04:00 ICD10 Worksheet Patient Problems: Problems Problem Status Onset Parkinson disease Acute
[2017-09-02] MEDS: SENNOSIDES/DOCUSATE SODIUM TAB PO SCH (08:15)
[2017-09-02] MEDS: ACETAMINOPHEN 325 MG TAB PO PRN (09:24)
[2017-09-02 10:43] VITALS: BP 128/81
--- NOTE | 2017-09-02 11:01 | ASMTLACE ---
LACE Length of stay for Answers: 2 days current admission Acuity / Level of Answers: Yes Care: Did the patient have an inpatient admission? Comorbidities - select Answers: Other Notes: Parkinson's disease all that apply # of Emergency department Answers: 0 visits in the last 6 months Score: 6 Date Signed: 09/02/2017 11:00 AM Electronically Signed By:ROHIT Barrera
--- NOTE | 2017-09-02 13:47 | ASMTCMCOM ---
CM Note CM Note Notes: OT/PT rec home. Found out after pt d/c pt open with [facility], spoke with Suzie who will determine if she needs resumptions orders and contact MD office. No CM d/c needs identified. Date Signed: 09/02/2017 01:46 PM Electronically Signed By:ROHIT Barrera
== END 2017-09-02 12:26 | disposition home or self-care (01) | DRG 21 ==
LOC: F3N 05:40
PROVIDERS: ADMIT Neurological Surgery; ATTEND Neurological Surgery
PROC: BW191ZZ Fluoroscopy of Head and Neck using Low Osmolar Contrast (ICD-10-PCS; 2017-09-01)
PROC: 4A10X4G Monitoring of Central Nervous Electrical Activity, Intraoperative, External Approach (ICD-10-PCS; principal; 2017-09-01 07:15)
PROC: 00H03MZ Insertion of Neurostimulator Lead into Brain, Percutaneous Approach (ICD-10-PCS; principal; 2017-09-01 07:15)
PROC: 00K03ZZ Map Brain, Percutaneous Approach (ICD-10-PCS; principal; 2017-09-01 07:15)
DX: G20 Parkinson's disease (principal); J06.9 Acute upper respiratory infection, unspecified
CPT/HCPCS: 97116-GP; 97161-GP; 97166-GO; C1713; J0171; J0360; J0697; J1580; J2405; J2704; J3010; P9041

== ENCOUNTER 2017-12-15 10:19 | Observation (INO) | payer MEDICAID ==
[2017-12-15] MEDS ORDERED: GENTAMICIN SULFATE 80 MG/2 ML VIAL ONE ×3 (10:33→14:42)
[2017-12-15] MEDS ORDERED: BUPIVACAINE 0.25% 30 ML SDV ONE (10:33)
[2017-12-15] MEDS ORDERED: CHLORHEXIDINE GLUC HIBICLENS 118 ML BTL TP ONE (10:33)
[2017-12-15] MEDS ORDERED: EPINEPHrine 1 MG/ML INJ ONE (10:34)
[2017-12-15] MEDS ORDERED: LIDOCAINE 1% 300 MG/30 ML SDV ONE (10:34)
[2017-12-15] MEDS ORDERED: LIDOCAINE 1% 2 ML INJ ID PRN (10:44)
[2017-12-15] MEDS ORDERED: ceFAZolin 2 GM/DEXTROSE 100 ML IV ONE (10:44)
[2017-12-15] MEDS ORDERED: LR 1,000 ML IV ONE (10:44)
[2017-12-15] MEDS ORDERED: ACETAMINOPHEN 500 MG TAB PO ONE (10:44)
[2017-12-15] MEDS ORDERED: DEXMEDETOMIDINE HCL 400 MCG in NS 100 ML IV ONE (12:00)
[2017-12-15] MEDS ORDERED: MIDAZOLAM 2 MG/2 ML VIAL IVP ONE (12:57)
--- NOTE | 2017-12-15 13:03 | PDANEPAE ---
ANE History of Present Illness Stage 2 deep brain stimulator ANE Past Medical History - Cardiovascular History Hx Hypertension: No Hx Arrhythmias: No Hx Chest Pain: No Hx Coronary Artery / Peripheral Vascular Disease: No Hx CHF / Valvular Disease: No Hx Palpitations: No - Pulmonary History Hx COPD: No Hx Asthma/Reactive Airway Disease: No Hx Recent Upper Respiratory Infection: No Hx Oxygen in Use at Home: No Hx Sleep Apnea: No Sleep Apnea Screening Result - Last Documented: Negative Pulmonary History Comment: CURRENT RESP INFECTION-COUGHING -NON PRODUCTIVE . - Neurologic History Hx Cerebrovascular Accident: No Hx Seizures: No Hx Dementia: No Neurologic History Comment: PARKINSON'S DX ~2016-TREMOR PREDOMINANTLY L GREATER THAN R. hx of CONCUSSION AGE 6 - Endocrine History Hx Diabetes: No Hypothyroid: No Hyperthyroid: No Obesity: moderate - Renal History Hx Renal Disorders: No - Liver History Hx Hepatic Disorders: No - Neurological & Psychiatric Hx Hx Neurological and Psychiatric Disorders: No - Cancer History Hx Cancer: No - Congenital Disorder History Hx Congenital Disorders: No - GI History GERD: no Hx Gastrointestinal Disorders: No - Other Health History Other Health History: hx of left wrist cellulitis after last surgery- treated with abx and [facility] following patient - Chronic Pain History Chronic Pain: No - Surgical History Prior Surgeries: 09/01/17 DBS left side with Sexton. 08/11/17 crani for DBS stg 1 with Carlie ANE Review of Systems Review of Systems: - Exercise capacity METS (RN): 4 METS ANE Patient History - Allergies Allergies/Adverse Reactions: No Known Allergies Allergy (Verified 12/15/17 11:03) - Home Medications Home Medications: Carbidopa/Levodopa [Carbidopa-Levodopa 25-100 Tab] 2 each PO 02,06,,16,21 [Last Taken 12/14/17] Entacapone [Comtan] 200 mg PO 02,06,11,16,21 07/29/17 [Last Taken 12/14/17] - NPO status NPO Status: no food or drink >8 hours NPO Since - Liquids (Date): 12/14/17 NPO Since - Liquids (Time): 23:00 NPO Since - Solids (Date): 12/14/17 NPO Since - Solids (Time): 23:00 - Anes Hx Anes Hx: no prior problems - Smoking Hx Smoking Status: Never smoked - Family Anes Hx Family Hx Anesthesia Complications: none ANE Labs/Vital Signs - Vital Signs Blood Pressure: 140/100 Heart Rate: 88 Respiratory Rate: 22 O2 Sat (%): 96 Height: 175.26 cm Weight: 108.86 kg ANE Physical Exam - Airway Neck exam: decreased ROM Mallampati Score: Class 3 Mouth exam: normal dental/mouth exam - Pulmonary Pulmonary: no respiratory distress, no rales or rhonchi - Cardiovascular Cardiovascular: regular rate and rhythym, no murmur, rub, or gallop - ASA Status ASA Status: III ANE Anesthesia Plan Anesthesia Plan: general endotracheal anesthesia
[2017-12-15] MEDS ORDERED: PROPOFOL/EMULSION 500 MG/50 ML BOTTLE IV ONE ×2 (13:16→14:51)
[2017-12-15] MEDS ORDERED: fentaNYL 250 MCG/5 ML INJ ONE (13:16)
[2017-12-15] MEDS ORDERED: ROCURONIUM 50 MG/5 ML VIAL ONE (13:22)
[2017-12-15] MEDS ORDERED: GLYCOPYRROLATE 0.2 MG/1 ML VIAL ONE ×3 (13:23→15:22)
[2017-12-15] MEDS ORDERED: DEXAMETHASONE 4 MG/ML VIAL ONE (14:10)
[2017-12-15] MEDS ORDERED: fentaNYL 100 MCG/2 ML INJ ONE (14:50)
[2017-12-15] MEDS ORDERED: NEOSTIGMINE METHYLSULFATE 5 MG/5 ML SYR ONE (15:22)
[2017-12-15] MEDS ORDERED: HYDROCODONE/APAP 5/325 TAB PO PRN (15:25)
--- NOTE | 2017-12-15 15:45 | POSTOPPROG ---
Post Op Note Date of Operation: 12/15/17 Surgeon: Lucia Sexton Maintenance Technician 3Rd Shift: Edel Miller PA-C Anesthesiologist: Dr. Anna Anesthesia: GET(General Endotracheal) Pre-op Diagnosis: Parkinson's Post-op Diagnosis: Parkinson's Procedure: Bilateral DBS generator implant Inf/Abcess present in the surg proc area at time of surgery?: No Depth: Superfical (Skin SQ) EBL: Minimal Plan Plan: 57 yo male sp bilateral DBS generator implant - pain control - advance diet as tolerated - dc home today
[2017-12-15] MEDS ORDERED: ONDANSETRON 4 MG/2 ML VIAL IVP PRN ×2 (15:55→18:14)
[2017-12-15] MEDS ORDERED: NALOXONE HCL 0.4 MG/ML INJ IVP PRN (15:55)
[2017-12-15] MEDS ORDERED: ALBUTEROL 3 ML DEYVIAL IH PRN (15:55)
[2017-12-15] MEDS ORDERED: fentaNYL 100 MCG/2 ML INJ IVP PRN (15:55)
[2017-12-15] MEDS ORDERED: HYDROmorphONE/DILAUDID 2 MG/ML INJ IVP PRN (15:55)
--- NOTE | 2017-12-15 15:56 | GOP ---
DATE OF OPERATION: 12/15/2017 SURGEON: Lucia Sexton DO NEUROSURGEON: Lucia Sexton DO BASS MECHANISM MAKER: ADELE Junior PREOPERATIVE DIAGNOSIS: Parkinson disease. POSTOPERATIVE DIAGNOSIS: Parkinson disease. PROCEDURE PERFORMED: 1. Bilateral deep brain stimulator generator placement lead extension placement with Medt la Activa SC. 2. Impedances x2. FINDINGS: SPECIMENS: None. ESTIMATED BLOOD LOSS: 50 cc per site, so 100 cc. INDICATIONS: This is a 57-year-old male with bilateral deep brain stimulator lead placement, who is returning for generator. DESCRIPTION OF PROCEDURE: He was identified, consented, and sites were marked. Brought to the opera ting room, anesthetized under general endotracheal tube anesthesia. Hair was clipped with the OR cli ppers. Incision sites were marked on the left. He was prepped and draped in the usual sterile fashi on. Incision at the chest wall was anesthetized with 0.25% Marcaine with epinephrine. Incision was made with a 10 blade just lateral to lead extension complex. Meticulous hemostasis was obtained with bipolar cautery, dissecting the lead extension out with Metzenbaum scissors. We then m christina an incision at the chest wall with a 10 blade and created a subcutaneous pocket of the appropriat e size with Metzenbaum scissors and blunt dissection. We tunneled from the head down to the chest in a single bringing the lead extension up and out, cut the stay sutures around the lead extension comp rené with a 15 blade, retracted the boot, protecting each contact. Used the torque wrench, removed th e extension, discarded the boot, placed a new boot, gently dried the lead, placed it into the new ext ension, protecting each contact, locked it down with a torque wrench. Brought the boot over the lead extension complex, tied it into position with 2-0 silk ties at 2 positions, brought it flat against the skull, placed the extension into the generator, locked into place with a torque wrench. Coiled t he wires posterior to the generator, placed it in the chest wall. Checked impedances, all impedances were good. Sutured the generator to the chest wall with 2 silk stitch at 2 positions. Copiously ir rigated each incision with over a liter of gentamicin-infused saline. Closed the galea with 2-0 Vicr yl pop-offs, the skin with 3-0 running nylon at the chest wall, closed the fascia with 0 Vicryl pop o ffs, subcutaneous layer of 3-0 Vicryl pop-offs. The skin was closed with 4-0 running Monocryl and De rmabond. Head was dressed with Xeroform gauze and Medipore tape. The patient's head was turned. The incision sites were marked on the right side. Incision at the ch est wall was anesthetized. He was prepped and draped in the usual sterile fashion. Again, incision was anesthetized with 0.25% Marcaine with epinephrine. Incision was made with a 10 blade just latera l to lead extension complex at the head and dissected out with Metzenbaum scissors. We then made a c hest wall incision with a 10 blade and created a subcutaneous pocket with Metzenbaum scissors and jena nt dissection, tunneling from the head down to the chest in a single pass, brought the lead extension up and out, cut the lead extension complex stay sutures with a 15 blade, retracted the boot, protect ing each contact. Used the torque wrench to remove the extension and the boot, discarded these, plac ed the new boot, gently tried the lead, placed it into the new extension, locked it into place, prote cting each contact with the torque wrench. Brought the boot over the lead extension complex, tied in position with 2-0 silk ties at 2 positions, brought this flat against the skull, coiled the wires po sterior to the extension, placed it into the generator, locked into place with a torque wrench and re placed into the pocket. Checked impedances, all impedances were good. Sutured to the anterior chest wall with 2- 0 silk stitch at 2 positions. Copiously irrigated each incision with over a liter of g entamicin-infused saline. Closed the galea with 0 Vicryl pop-offs, the skin with 3-0 running nylon. The fascia at the chest was closed with 2-0 Vicryl pop offs, subcutaneous layer of 0 Vicryl pop-offs . The skin was closed with 4-0 running Monocryl and Dermabond head. Both head incisions were redres sed with Xeroform gauze and Medipore tape. Patient tolerated procedure well. No complications. All impedances were good. FLUIDS: 900 cc of crystalloid. URINE OUTPUT: None. DRAINS: None. COMPLICATIONS: None. /[id number]/MODL
[2017-12-15] MEDS ORDERED: ENTACAPONE 200 MG TAB PO ONE (16:20)
[2017-12-15] MEDS: CARBIDOPA/LEVODOPA 25 MG/100 MG TAB PO SCH ×2 (16:21→20:46)
--- NOTE | 2017-12-15 17:15 | POSTANESTH ---
Post Anesthetic Evaluation Cardiovascular Status: Normal, Stable Respiratory Status: Similar to Pre-op Cond. Level of Consciousness/Mental Status: Can Participate in Eval Pain Control: Adequate, Prn Tx Ordered Nausea/Vomiting Control: Adequate, Prn Tx Ordered Complications Possibly Related to Anesthesia: None Noted
[2017-12-15] MEDS ORDERED: diphenhydrAMINE 25 MG CAP PO PRN (18:14)
[2017-12-15] MEDS ORDERED: POLYETHYLENE GLYCOL 3350 17 GM PKT PO PRN (18:14)
[2017-12-15] MEDS ORDERED: MAGNESIUM HYDROXIDE 30 ML UDCUP PO PRN (18:14)
[2017-12-15] MEDS ORDERED: ONDANSETRON DISINTEGRATING 4 MG TAB PO PRN (18:14)
[2017-12-15] MEDS ORDERED: BISACODYL 10 MG SUPP PR PRN (18:14)
[2017-12-15] MEDS ORDERED: LACTULOSE 20 GM/30 ML UDCUP PO PRN (18:14)
[2017-12-15] MEDS: SENNOSIDES/DOCUSATE SODIUM TAB PO SCH (20:46)
[2017-12-15] MEDS: ceFAZolin 2 GM/DEXTROSE 100 ML IV SCH (20:47)
[2017-12-16] MEDS: ENTACAPONE 200 MG TAB PO SCH ×2 (05:39→11:06)
[2017-12-16] MEDS: CARBIDOPA/LEVODOPA 25 MG/100 MG TAB PO SCH ×2 (05:39→11:06)
[2017-12-16] MEDS: ceFAZolin 2 GM/DEXTROSE 100 ML IV SCH (05:39)
[2017-12-16 08:16] VITALS: BP 148/86
--- NOTE | 2017-12-16 08:36 | NEUSURGPN ---
Date of Surgery: 12/15/17 Post Op Day: 1 Assessment/Plan: 57 yo male s/p bilateral DBS generator implant for PD - neuro stable - pain controlled - tolerating diet - discharge home Subjective: No new complaints, doing well. Objective: Awake. Alert. PERRL. EOMI Facial expression symmetrical Muscle strength full at 5/5 Incision c/d/i with dressings - Physician Discussed Patient with Dr.: Sexton Neurosurgery Physical Exam - Vitals, I&O, Labs I and O 12/15/17 12/16/17 12/17/17 05:59 05:59 05:59 Intake Total 800 Balance 800 Weight 108.86 kg Intake: Oral (ml) 700 IV Intake (ml) 100 Other: Number of Voids Toilet 3 Vital Signs Temp Pulse Resp BP Pulse Ox 36.9 C 75 15 148/86 H 93 12/16/17 08:00 12/16/17 08:00 12/16/17 08:00 12/16/17 08:00 12/16/17 08:00 ICD10 Worksheet Patient Problems: Problems Problem Status Onset Parkinson disease Acute
[2017-12-16] MEDS: SENNOSIDES/DOCUSATE SODIUM TAB PO SCH (11:02)
--- NOTE | 2017-12-16 11:20 | ASMTLACE ---
LACE Length of stay for Answers: 2 days current admission Acuity / Level of Answers: No Care: Did the patient have an inpatient admission? Comorbidities - select Answers: Other Notes: Parkinson's disease all that apply # of Emergency department Answers: 0 visits in the last 6 months Score: 3 Date Signed: 12/16/2017 11:20 AM Electronically Signed By:ROHIT Barrera
--- NOTE | 2017-12-16 11:22 | ASMTCMCOM ---
CM Note CM Note Notes: Pt had DBS implant for Parkinson's. PT rec home. Pt medically stable for d/c. [place] transport arranged for pt d/c. Pt resides with roommates. Date Signed: 12/16/2017 11:22 AM Electronically Signed By:ROHIT Barrera
[2017-12-17] MEDS ORDERED: ENOXAPARIN 40 MG/0.4 ML SYR SC SCH (09:00)
== END 2017-12-16 11:08 | disposition home or self-care (01) ==
LOC: FSGY 10:19 → F3N 17:29
PROVIDERS: ADMIT Physician Assistant Surgical; ATTEND Neurological Surgery
PROC: 0JH60BZ Insertion of Single Array Stimulator Generator into Chest Subcutaneous Tissue and Fascia, Open Approach (ICD-10-PCS; principal; 2017-12-15 13:00)
DX: G20 Parkinson's disease (principal); J98.8 Other specified respiratory disorders; Z86.19 Personal history of other infectious and parasitic diseases; Z87.820 Personal history of traumatic brain injury
CPT/HCPCS: 61885; 97161; G0378; C1767; C1787; C1883; J0171; J0690; J1100; J1580; J2250; J2704; J2710; J3010